=== PATIENT | female | born 1960 | race Caucasian/White ===

== ENCOUNTER 2017-04-13 07:10 | Day surgery (SDC) | payer OTHER ==
[~2017-04-13] VITALS: Ht 152.4 cm; Wt 71.0 kg
[~2017-04-13 07:10] MED LIST: ALBU8.5H2 INHALATION; ALPR0.254 PO; PRED50TA PO; Sodium Chloride LOK Flush 10 mL Syringe IV PRN; TRAZ-115 PO; fentaNYL-PF 50 mCg/mL 2 mL Inj IVPUSH PRN; vitamin c PO
[2017-04-13 07:46] VITALS: BP 151/91; PULSE 65; RESP 16; O2SAT 99
[2017-04-13] MEDS: 0.9% Sodium Chloride 1,000 ML IV SCH ×2 (08:22→08:39)
[2017-04-13 08:42] VITALS: BP 133/79; PULSE 73; RESP 16; O2SAT 95
[2017-04-13 08:52] VITALS: BP 116/72; PULSE 66; RESP 16; O2SAT 95
[2017-04-13 09:02] VITALS: BP 117/73; PULSE 66; RESP 16; O2SAT 97
--- NOTE | 2017-04-13 09:11 | ENDO ---
[address] [address] ENDOSCOPY PROCEDURE PATIENT: BRAD CAMPBELL : 1960 MR#: [id number] ADMIT: 04/13/2017 JOB ID: [id number] DATE OF SERVICE: 04/13/2017 PREOPERATIVE DIAGNOSIS: Epigastric pain. POSTOPERATIVE DIAGNOSIS: Epigastric pain. PROCEDURE: Upper endoscopy. SURGEON: Alejandro Dalal MD. INDICATIONS: The patient is a 57-year-old woman has had a previous hiatal hernia repair for a large paraesophageal hernia. She has epigastric pain. After discussing options with the patient, it was elected proceed with an upper endoscopy. FINDINGS: The esophagus was normal. The GE junction and hiatus were right at 37-38 cm. There was no evidence of a recurrent hiatal hernia. There was no distal esophagitis, stricture, ulceration, or neoplasia. Retroflexed views of the cardia showed a typical looking Kia wrap. The fundus, body and antrum of the stomach were normal. The pylorus and duodenum through the second portion of the duodenum were normal. DESCRIPTION OF PROCEDURE: The procedure and sedation plan was discussed with the patient and nursing staff, and a procedural time-out was held. She gargled viscous Xylocaine. She was given 4 mg Versed and 75 mcg of fentanyl. Olympus GIF-H180J video endoscope was passed transorally, advanced down into the second portion of the duodenum, withdrawn, and antegrade and retroflexed views of the stomach were obtained with results as stated above. There were no gross abnormalities. No biopsies were taken. IMPRESSION: Normal upper endoscopy. PLAN: She has a left lower quadrant abdominal wall hernia. She will be scheduled for repair.
[2017-04-13 09:12] VITALS: BP 146/87; PULSE 61; RESP 16; O2SAT 100
[2017-04-13 09:22] VITALS: BP 146/87; PULSE 58; RESP 16; O2SAT 100
== END 2017-04-13 23:59 | disposition home or self-care (01) ==
LOC: END 07:10
PROVIDERS: ATTEND Surgery
DX: R10.13 Epigastric pain (principal); K43.9 Ventral hernia without obstruction or gangrene; K44.9 Diaphragmatic hernia without obstruction or gangrene; K21.9 Gastro-esophageal reflux disease without esophagitis; F41.8 Other specified anxiety disorders; K57.30 Diverticulosis of large intestine without perforation or abscess without bleeding; Z87.442 Personal history of urinary calculi
CPT/HCPCS: 43235; G0500; J7030

== ENCOUNTER 2017-05-02 07:44 | Day surgery (SDC) | payer OTHER ==
[2017-05-02] VITALS (10 sets, daily range): BP systolic 106–136; BP diastolic 56–78; PULSE 58–72; RESP 13–18; O2SAT 94–98
[~2017-05-02] VITALS: Ht 157.5 cm; Wt 68.5 kg
[~2017-05-02 07:44] MED LIST changes: -ALPR0.254 PO; -PRED50TA PO; -Sodium Chloride LOK Flush 10 mL Syringe IV PRN; -fentaNYL-PF 50 mCg/mL 2 mL Inj IVPUSH PRN; -vitamin c PO
[2017-05-02] MEDS ORDERED: Lidocaine PF 1% 30 mL Inj ONE (07:45)
[2017-05-02] MEDS ORDERED: Glycopyrrolate 0.2 MG/ML 1mL Inj ONE (07:45)
[2017-05-02] MEDS ORDERED: Neostigmine 1 mg/mL 10 mL Inj ONE (07:45)
[2017-05-02] MEDS ORDERED: Propofol 10,000 mCg/mL 20 mL Inj ONE (07:45)
[2017-05-02] MEDS ORDERED: Ondansetron 2 mg/mL 2 mL Inj ONE (07:45)
[2017-05-02] MEDS ORDERED: Rocuronium 10 mg/mL 5 mL Inj ONE (07:45)
[2017-05-02] MEDS ORDERED: Dexamethasone 4 mg/mL Inj ONE (07:45)
[2017-05-02] MEDS ORDERED: fentaNYL-PF 50 mCg/mL 2 mL Inj ONE (07:45)
[2017-05-02] MEDS: Lactated Ringer's 1,000 ML IV SCH ×2 (07:50→10:59)
[2017-05-02] MEDS ORDERED: vit c PO (08:48)
[2017-05-02] MEDS ORDERED: IBUP200C PO (08:48)
[2017-05-02] MEDS: Vancomycin 1 Gm/200 mL NS Premix IV SCH (10:16)
--- NOTE | 2017-05-02 10:45 | PCM.HPANE ---
Patient Data Date of Service: May 02, 2017 Surgeon Admitting Provider: Attending Provider:Alejandro Dalal MD Primary Care Physician:Nikky Upton PA-C Other Provider:Nain Gonzalez Anesthesia Reason for Visit Abdominal Wall Hernia Ht/WT & BMI Height (Feet): 5 Height (Inches): 2.00 Weight (Kilograms): 68.490 Body Mass Index 27.00 Allergies Coded Allergies: Cephalexin Monohydrate (Verified Allergy, Severe, 04/13/17) Doxycycline Calcium (Verified Allergy, Severe, swelling,breathing problems , 04/13/17) Nitrofurantoin Macrocrystal (Verified Allergy, Severe, hives and swelling , 04/13/17) Sulfa (Sulfonamide Antibiotics) (Verified Allergy, Severe, 04/13/17) amoxicillin (Verified Allergy, Severe, 04/13/17) hives, anaphylaxis cefaclor (Verified Allergy, Severe, hives, anaphylaxis, 04/13/17) clindamycin (Verified Allergy, Severe, hives, anaphylaxis, 04/13/17) doxycycline hyclate (Verified Allergy, Severe, swelling,breathing problems , 04/13/17) doxycycline monohydrate (Verified Allergy, Severe, swelling,breathing problems, 04/13/17) erythromycin base (Verified Allergy, Severe, 04/13/17) iron (Verified Allergy, Severe, hives and swelling, 04/13/17) latex (Verified Allergy, Severe, hives, 05/02/17) penicillin G (Verified Allergy, Severe, 04/13/17) sulfamethoxazole (Verified Allergy, Severe, hives, anaphylaxis, 04/13/17) tetracycline (Verified Allergy, Severe, 04/13/17) trimethoprim (Verified Allergy, Severe, hives, anaphylaxis, 04/13/17) Cephalosporins (Verified Allergy, Unknown, 04/13/17) doxepin (Verified Allergy, Unknown, 04/13/17) Uncoded Allergies: antibiotics (Allergy, Severe, cannot take most antibiotics/swelling breathing issues, 11/06/09) bronosol (Allergy, Severe, unknown, 11/06/09) Past Anesthesia History Anesthesia History: Denies:: Abnormal Airway, Anesthesia Reactions, Difficult Intubation, Fam Anesthesia Reaction, Fam Malignant Hypertherm, Malignant Hyperthermia Diabetes History Hx Diabetes?: No Current Bedside Blood Glucose: 102 MRSA MRSA: No Medications Hypertension Medication: No Home Meds Incl Beta Sushil: No Reported Medications Ibuprofen 200 Mg [id number] Mg PO QID PRN For Pain Ref 0 05/02/17 [vit c] No Conflict Check Po Daily 05/02/17 Albuterol HFA (Proair HFA)8.5 Gm Hfa.aer.ad2 Puffs INHALATION Q4H #1 INHALER 04/12/17 Trazodone 50 Mg [id number] Mg PO HS Ref 0 04/12/17 History History of ENT Problems?: Yes HEENT History: Positive for:: Dysphagia Sinus Problem (seasonal allergies) Denies:: Abnormal Airway Difficult Intubation Hearing Problem Denture Type: None Teeth Condition: Within Normal Limits Hx of Heart Problems?: No Cardiovascular History: Denies:: AICD Atrial Fibrillation Chest Pain Congestive Heart Failure Hypertension Pacemaker Valvular Heart Disease Hx of Respiratory Problem?: Yes Respiratory History: Positive for:: Asthma (per emr- no inhaler use on record) Denies:: COPD Cough Hemoptysis Oxygen Administration Pneumonia Tuberculosis Use of C-PAP Machine Use of Inhalers / NEBS Hx Neurologic Problems?: No Neurological History: Denies:: CVA Dementia Multiple Sclerosis Parkinson's Disease Seizures Hx of GI Problems?: Yes Other GI Pertinent History: left abdominal wall hernia current admission problem Hx of Problems?: No Genitourinary History: Denies:: Kidney Stones Female Hx: Positive for:: Problems with Breasts? (hx of breast reduction) Denies:: Currently (post menopause) Skin History: Denies:: History Skin Disorders? (psorasis) Hx Musculoskeletal Problems?: Yes Musculoskeletal History: Positive for:: Back Injury (back pain hx) Denies:: Fibromyalgia Joint Replacement Musculoskeletal Trauma Myasthenia Gravis Osteoarthritis Hx of Psycho/Social Problems?: No Psycho Social History: Positive for:: Anxiety Hx Depression Hx Surgeries?: Yes (lap laka, , tummy tuck, breast reduction, lap leah) Hx Any Other Health Problems?: Yes Other History: Denies:: Cancer Endocrine Disease Hospitalization Thyroid Disease Hx Diabetes: NoBedside Blood Glucose: 102 Hx Alcohol Use: Yes (rarely, socially)Hx Substance Use: No Smoking Status: Never Smoker Have You Smoked inLast 12 mo: No Stop/Bang P-Blood Pressure: treated: No B- Body Mass Index > 35 kg/m2: No A- Age over 50: Yes N- Neck Large Circumference: No G- Gender Male: No LASHAE Risk Assessment: Low Risk, <3 Yes Risk Assessment Category Category 1A: Patient has history of documented sleep apnea, and HAS NOT received any narcotic, sedative or anesthesia administration during this stay. Category 1B: Patient has history of documented sleep apnea, and HAS received any narcotic , sedative or anesthesia administration during this stay Category 2: Patient has SUSPECTED Obstructive Sleep Apnea, and HAS received any narcotic , sedative or anesthesia administration during this stay. Category 3: Patient has SUSPECTED Obstructive Sleep Apnea and HAS NOT received narcotic, sedative or anesthesia administration during this stay. Category 4: Outpatient in Procedural Areas with known sleep apnea or who screen positive for High Risk via the STOP/BANG questionnaire. Exam Exam Vital Signs Vital Signs Date Time Temp Pulse Resp B/P Pulse Ox O2 Delivery O2 Flow Rate FiO2 05/02/17 08:35 36.1 67 18 136/78 97 Room Air General Appearance: Alert, Oriented X3, Cooperative, No Acute Distress HEENT/AIRWAY: MP 2 Lungs: Clear to Auscultation, Normal Air Movement Heart: Exam Unremarkable, Regular Rate/Rhythm, No Murmurs/Rubs/Gallops Meds/Labs/Diagnostics Admission Meds Current Medications Lactated Ringer's 1,000 ml @ 120 mls/hr Q8H20M IV Last administered on 07:50; Start 05/02/17 at 05:00; Stop 05/02/17 at 13:19 Vancomycin/0.9 % Sod Chloride/ Premix (Vancomycin Inj/ IV Premix) 200 ml @ 133.333 mls/hr PREOP IV Last administered on 05/02/17 10:16; Start 05/02/17 at 06:00 Bedside Blood Glucose: 102 Plan Impression Patient chart reviewed, patient interviewed and anesthestic plan with risks, benefits, and alternatives discussed, and informed consent obtained. ASA Physical Status: ASA2 Mod Systemic Disease Anesthetic Plan: GA Bene/Risks/Altern/Consents: Yes HP Complete Prior to Induction: Yes Brayden Pak MD May 02, 2017 10:44
[2017-05-02] MEDS ORDERED: Bupivacaine-MPF 0.25% 30 mL Inj INFILTRATE ONE (11:25)
[2017-05-02] MEDS ORDERED: Lactated Ringer's 500 ML IV PRN (12:08)
[2017-05-02] MEDS ORDERED: Lactated Ringer's 1,000 ML IV SCH (12:08)
[2017-05-02] MEDS ORDERED: Ondansetron 2 mg/mL 2 mL Inj IVPUSH PRN (12:10)
[2017-05-02] MEDS ORDERED: HYDROmorphone 1 mg/mL Inj IVPUSH PRN (12:10)
[2017-05-02] MEDS ORDERED: Atropine 0.4 mg/mL Inj IVPUSH PRN (12:10)
[2017-05-02] MEDS ORDERED: Phenylephrine 10,000 mCg/mL Inj IVPUSH PRN (12:10)
[2017-05-02] MEDS ORDERED: fentaNYL-PF 50 mCg/mL 2 mL Inj IVPUSH PRN (12:10)
[2017-05-02] MEDS ORDERED: Labetalol 5 mg/mL 4 mL Inj IV PRN (12:10)
[2017-05-02] MEDS ORDERED: EPHEDrine Sulfate 50 mg/mL Inj IVPUSH PRN (12:10)
[2017-05-02] MEDS ORDERED: hydrALAZINE 20 mg/mL Inj IVPUSH PRN (12:10)
[2017-05-02] MEDS ORDERED: MetoCLOpramide 5 mg/mL 2 mL Inj IVPUSH PRN (12:10)
--- NOTE | 2017-05-02 12:43 | PCM.ANEP1 ---
Post Anesthesia PACU Phase 1 Assessment Date of Service: May 02, 2017 Vital Signs 37.1 113/56 74 15 98% FM Anesthetic Administered: GA Level of Alertness: Sleepy, easy to arouse LEBRON's with Equal Strength: Yes Pain: No Nausea or Vomiting: No CV Function & Hydration Stable: Yes Airway Device: Oxygen Delivery: Simple Mask Lungs: Clear to Auscultation, Normal Air Movement PACU Phase 2 Assessment Complications: No Follow up Care: No Patient Instructions Provided: Yes Brayden Pak MD May 02, 2017 12:43
[2017-05-02] MEDS ORDERED: Lactated Ringer's 1,000 ML IV ONE (13:45)
--- NOTE | 2017-05-02 13:59 | OP ---
[address] [address] OPERATIVE REPORT PATIENT: BRAD CAMPBELL : 1960 MR#: [id number] ADMIT: 05/02/2017 JOB ID: [id number] DATE OF SURGERY: 05/02/2017 PREOPERATIVE DIAGNOSIS(ES): Left lower quadrant abdominal wall hernia (spigelian hernia). POSTOPERATIVE DIAGNOSIS(ES): Left lower quadrant abdominal wall hernia (spigelian hernia). PROCEDURE: Laparoscopic repair of left lower quadrant abdominal wall hernia (spigelian hernia) with mesh. SURGEON: Alejandro Dalal M.D. CLINICAL FACULTY: Tavo Tellez PA-C INDICATIONS: The patient is a 57-year-old female. A year ago I fixed a left spigelian hernia. She developed recurrent abdominal pain. A CT scan showed a left lower quadrant abdominal wall hernia with a defect just under 2 cm. I actually thought this was a recurrent spigelian hernia, and after discussing options with the patient, it was elected to proceed with repair. The patient also preoperatively complained of right inguinal pain although with the CT scan did not show a right inguinal hernia and I did not appreciate one on physical examination. FINDINGS: She did not have a recurrent left spigelian hernia but actually a second hernia. It was located above and slightly lateral to the old mesh. It was a separate defect. She had no evidence of a right lower quadrant inguinal or abdominal wall hernia. She is showing some weakness of her linea alba just above her umbilicus but not a true hernia. DESCRIPTION OF PROCEDURE: At the beginning and end of the operation, the SCOAP checklist was completed. A general endotracheal anesthetic was induced. Using Betadine, she was prepped and draped in the usual fashion. After completing the surgical time-out, pneumoperitoneum was established through a left subcostal Veress needle. I then placed a 5 mm right subcostal optical port. I subsequently placed two additional 5 mm ports on the right lateral abdominal wall and then ultimately upsized the middle 5 mm port to a 12 mm. It was initially difficult to actually identify where the hernia was. There were no loops of small bowel in it, but I was able to identify and then elected to repair it with a 6 cm circular mesh. It was placed through the 12 mm port and then fixated to the anterior abdominal wall with tacks, but where it overlapped the previous mesh, I passed an 18-gauge needle through a separate stab wound that went through both meshes and then through the needle passed 2-0 Prolene and that was hence tied extrafascial. There was essentially no bleeding. There were no complications. Prior to deflating the abdomen, the 12 mm right lateral port site was closed with 0-Vicryl. Skin incisions were closed with subcuticular 4-0 Vicryl. Steri-Strips and Band-Aids were applied. The estimated blood loss less than 10 cc. No apparent complications. The final sponge, needle and instrument counts were announced as correct and the patient was returned to recovery in stable condition. Critical assistance provided by Tvao Tellez PA-C.
[2017-05-02] MEDS: HYDROcodone-APAP 5-325 mg Tablet PO PRN ×2 (14:30→15:00)
== END 2017-05-02 23:59 | disposition home or self-care (01) ==
LOC: SAS 07:44
PROVIDERS: ATTEND Surgery
DX: K43.9 Ventral hernia without obstruction or gangrene (principal); K21.9 Gastro-esophageal reflux disease without esophagitis; K57.30 Diverticulosis of large intestine without perforation or abscess without bleeding; F41.8 Other specified anxiety disorders; R13.10 Dysphagia, unspecified; J45.909 Unspecified asthma, uncomplicated
CPT/HCPCS: 49652; C1781; J3010; J3370; J7120